=== PATIENT | male | born 1965 | race Caucasian/White ===

== ENCOUNTER → 2018-02-17 | Outpatient (CLI) | payer BC ==
--- NOTE | 2018-02-17 15:38 | XR ---
EXAMINATION TYPE: XR knee complete RT DATE OF EXAM: 02/17/2018 COMPARISON: NONE HISTORY: Pain TECHNIQUE: Four views are submitted. FINDINGS: Joint spaces are preserved. Osseous structures are intact. No acute fracture seen. There are 2 ankit ear opaque densities overlying the knee which appear to be in the soft tissues. Findings are suspicio us for foreign body. One of which appears to be along the anterior margin of the joint space paramedi an laterally. IMPRESSION: 1. No acute fracture or dislocation. 2. Findings are suspicious for radiopaque metallic foreign body within the infrapatellar region as di scussed above. Correlate with CT scan as clinically warranted.
--- NOTE | 2018-02-17 15:39 | XR ---
EXAMINATION TYPE: XR foot complete RT DATE OF EXAM: 02/17/2018 COMPARISON: NONE HISTORY: Pain TECHNIQUE: Three views are submitted. FINDINGS: The osseous structures are intact. There is no acute fracture or dislocation. There is severe arth ropathy with complete loss of joint space first MTP with hypertrophic spurring. Postsurgical change i nvolving the distal tibia. IMPRESSION: 1. No acute fracture or dislocation. If symptoms persist, follow-up exam in 7 to 10 days could be ob tained. 2. 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
== END | disposition home or self-care (01) ==
LOC: RADXRYALE 15:19
PROVIDERS: ATTEND Family Medicine
DX: M19.071 Primary osteoarthritis, right ankle and foot (principal); M25.562 Pain in left knee

== ENCOUNTER → 2023-08-12 | Outpatient (CLI) | payer BC ==
--- NOTE | 2023-08-13 11:34 | MR ---
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 The patient was then given intravenous contrast and multi planar, T1 fat-saturation images wer e obtained. IV Contrast: 8 cc Gadavist FINDINGS: Mild cerebral atrophy with proportional dilation of ventricular system. Diffusion-weighted imaging s hows no evidence of restricted diffusion to suggest acute/subacute infarct. Intracranial arterial natalie w voids are maintained. Midline structures show no abnormality. Scattered foci of high T2 signal inte nsity are seen within the periventricular white matter. The susceptibility weighted images do not rev eal any evidence for micro-hemorrhage. After administration of gadolinium, no abnormal enhancement is seen. The bone marrow signal is within normal limits. Paranasal sinuses and mastoid air cells: No significant paranasal sinus disease. Visualized orbits: Orbital contents are intact. IMPRESSION: 1. Similar mild age-related atrophy changes. No evidence of intracranial mass, acute/subacute infarct , or abnormal enhancement. 2. Mild to moderate paranasal sinus disease worse in the left maxillary sinus.
== END | disposition home or self-care (01) ==
LOC: RADMRIMAIN 15:30
PROVIDERS: ATTEND Family Medicine
DX: G31.84 Mild cognitive impairment of uncertain or unknown etiology (principal); F41.3 Other mixed anxiety disorders; J34.89 Other specified disorders of nose and nasal sinuses; G31.89 Other specified degenerative diseases of nervous system
CPT/HCPCS: 70553; A9585